=== PATIENT | female | born 1970 | race Two or more races ===

== ENCOUNTER 2025-03-15 17:09 | Emergency (ER) | payer MEDICAID, OTHER ==
[~2025-03-15] VITALS: Ht 149.9 cm; Wt 96.3 kg
[2025-03-15 17:20] VITALS: BP 153/79; PULSE 84; RESP 18; TEMP 98.7; O2SAT 95
--- NOTE | 2025-03-15 17:35 | ED.PDOC ---
Musculoskeletal HPI Comments THIS IS A 54 YEAR OLD FEMALE PRESENTS TO THE ED WITH CHIEF COMPLAINT OF KNEE PAIN S/P FALL. PATIENT REPORTS WHILE AT [facility] TODAY, SHE HAD TRIPPED AND FELL, CAUSING HER TO INJURE HER LEFT KNEE. PATIENT RELAYS THAT SHE NOW HAS LEFT KNEE PAIN AND SWELLING. PATIENT STATES SHE HAD A PREVIOUS MENISCUS TEAR TO THE LEFT KNEE WITH SURGERY TO CORRECT IT IN THE PAST. PATIENT DENIES ANY NUMBNESS, WEAKNESS, TINGLING, HEAD INJURY, OR BACK PAIN. NO FURTHER COMPLAINTS OR CONCERNS AT POINT OF CARE. Chief Complaint: Lower Extremity Time Seen by MD: 17:32 Reviewed Notes: Nurses Notes, Medications, Allergies Allergies: Coded Allergies: NO KNOWN ALLERGIES (Unverified , 03/15/25) Home Meds Active Scripts Ibuprofen (Ibuprofen) 800 Mg Tab, 1 TAB PO TID, #30 TAB Prov:TRICIA WHYTE 03/15/25 Information Source: Patient Mode of Arrival: Ambulatory Location: Left Extremity Location: Knee Timing: Hours Prehospital treatment: None Severity: Moderate Able to Move Extremity: Yes Bear Weight: Limited Pain: Moderate Mechanism: Hyperextension Circumstances: Fall Onset of Symptoms: After Trauma Symptoms: Swelling, Pain DVT Risk Factors: NONE History of: Knee Operation Associated signs and symptoms: Knee pain Past Medical History PAST MEDICAL HISTORY: DM Past Medical History (Other): LEFT KNEE MENISCUS TEAR Surgical History: Denies all surgeries Surgical History (Other): LEFT KNEE 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 Family History Family History: Reviewed,noncontributory to illness Social History Smoker: Non-Smoker Alcohol: Denies ETOH Use Drugs: Denies Drug Use Lives In: Home Constitutional: denies: chills, diaphoresis, fatigue, fever, malaise, sweats, weakness, others EENTM: denies: blurred vision, double vision, ear bleeding, ear discharge, ear drainage, ear pain, ear ringing, eye pain, eye redness, hearing loss, mouth pain, mouth swelling, nasal discharge, nose bleeding, nose congestion, nose pain, photophobia, tearing, throat pain, throat swelling, voice changes, others Respiratory: denies: cough, hemoptysis, orthopnea, SOB at rest, shortness of breath, SOB with excertion, stridor, wheezing, others Cardiovascular: denies: chest pain, dizzy spells, diaphoresis, Dyspnea on ex ertion, edema, irregular heart beat, left arm pain, lightheadedness, palpitations, PND, syncope, others Gastrointestinal: denies: abdomen distended, abdominal pain, blood streaked bowels, constipated, diarrhea, dysphagia, difficulty swallowing, hematemesis, melena, nausea, poor appetite, poor fluid intake, rectal bleeding, rectal pain, vomiting, others Genitourinary: denies: abnormal vagina bleeding, burning, dyspareunia, dysuria, flank pain, frequency, hematuria, incontinence, pain, , vagina discharge, urgency, others Neurological: denies: dizziness, fainting, headache, left sided numbness, left sided weakness, numbness, paresthesia, pre-existing deficit, right sided numbness, right sided weakness, seizure, speech problems, tingling, tremors, weakness, others Musculoskeletal: reports: joint pain, joint swelling, others (LEFT KNEE PAIN AND SWELLING); denies: back pain, gout, muscle pain, muscle stiffness, neck pain Integumetry: denies: bruises, change in color, change in hair/nails, dryness, laceration, lesions, lumps, rash, wounds, others Allergic/Immunocompromised: denies: Difficulty Healing, Frequent Infections, Hives, Itching, others Hematologic/Lymphatic: denies: anemia, blood clots, easy bleeding, easy bruising, swollen glands, others Endocrine: denies: excessive hunger, excessive sweating, excessive thirst, excessive urination, flushing, intolerance to cold, intolerance to heat, unexplained weight gain, unexplained weight loss, others Psychiatric: denies: anxiety, bipolar disorder, depression, hopeless, panic disorder, schizophrenia, sleepless, suicidal, others All Other Systems: Reviewed and Negative Physical Exam General Appearance: No Apparent Distress, Obese HEENT: Normal ENT Inspection, PERRL/EOMI, Pharynx Normal, TMs Normal Neck: Full Range of Motion, Non-Tender, Normal, Normal Inspection Respiratory: Chest Non-Tender, Lungs Clear, No Accessory Muscle Use, No Respiratory Distress, Normal Breath Sounds Cardiovascular: No Edema, No JVD, No Murmur, No Gallop, Normal Peripheral Pulses, Regular Rate/Rhythm Breast Exam: Deferred Gastrointestinal: No Organomegaly, Non Tender, No Pulsatile Mass, Normal Bowel Sounds, Soft Genitalia: Deferred Pelvic: Deferred Rectal: Deferred Extremities: Decreased range of motion, No calf tenderness, Normal capillary refill, No pedal edema, Swelling (TENDERNESS AND SWELLING ON LEFT ANTERIOR KNEE, NO DEFORMITY AND OPEN WOUND. ), Tender (AND SWELLING ON ANTERIOR KNEE, NO BONY TENDERNESS AND DEFORMITY. ) Musculoskeletal : Apperance: Normal Neurologic: Alert, event designer II-XII nml as Tested, No Motor Deficits, Normal Affect, Normal Mood, No Sensory Deficits Cerebellar Function: Normal Reflexes: Normal Skin: Dry, Normal Color, Warm Peripheral Pulses: 2+ carotid (R), 2+ carotid (L), 2+ dorsalis pedis (R), 2+ dorsalis pedis (L) Lymphatic: No Adenopathy Was a procedure done? Was a procedure done?: No Differential Diagnosis EXT Differential Diagnosis: Fracture, Sprain, Dislocation, DJD, Contusion, Strain, Arthritis, Bursitis X-Ray, Labs, Meds, VS Vital Signs Date Time Temp Pulse Resp B/P (MAP) Pulse Ox O2 Delivery O2 Flow Rate FiO2 03/15/25 17:20 98.7 84 18 153/79 (103) 95 98.7 Current Medications Medications (Trade) Dose Ordered Sig/Marissa Route Start Time Stop Time Status Last Admin Acetaminophen/ Hydrocodone Bitart ([place] 10/325MG Tab) 1 tab ONCE ONCE PO 03/15/25 17:45 03/15/25 17:46 DC 03/15/25 18:01 X-Ray, Labs, Meds, VS Comment EXTERNAL MEDICAL RECORDS REVIEWED: [NONE] INDEPENDENT HISTORIANS: [NONE] SOCIAL DETERMINANTS OF HEALTH: [NONE] LABS ORDERED: NONE REVIEWED AND INTERPRETED RESULTS: LEFT KNEE XR INTERPRETED BY ME. NO ACUTE FINDINGS. NO FRACTURES OR DISLOCATION. DEGENERATIVE CHANGES NOTED. PENDING RADI OLOGIST REPORT. IMAGING ORDERED: LEFT KNEE XR TREATMENTS ORDERED: [place] 10/325 PO PROCEDURES PERFORMED: NONE CRITICAL CARE TIME: NONE I HAVE DISCUSSED THE PATIENT WITH THE ATTENDING PHYSICIAN DR. DEE AND HE AGREES WITH THE PATIENT'S PLAN OF CARE AND DISPOSITION. BASED ON HISTORY OF PRESENT ILLNESS, AND PHYSICAL EXAM, PATIENT WILL BE DISCHARGED HOME. DISCUSSED PLAN FOR DISCHARGE HOME WITH RX [MOTRIN 800MG]. MEDICATION WARNINGS GIVEN. SHARED DECISION MAKING: DISCUSSED WITH PATIENT THAT THEIR WORKUP WAS NORMAL. PATIENT INSTRUCTED TO FOLLOW UP WITH PRIMARY CARE PROVIDER IN 1-2 DAYS FOR RE- EVALUATION OF SYMPTOMS. PATIENT VERBALIZES UNDERSTANDING TO RETURN TO ED FOR NEW OR WORSENING SYMPTOMS OR IF FOLLOW UP WITH PCP CANNOT BE OBTAINED. PATIENT FEELS COMFORTABLE GOING HOME AT THIS TIME. ALL QUESTIONS ADDRESSED AT TIME OF DISCHARGE. Time of 1ST Reevaluation: 18:20 Reevaluation 1ST: Improved Patient Education/Counseling: Diagnosis, Treatment, Need For Follow Up Family Education/Counseling: Diagnosis, Treatment, Need For Follow Up, No Family Present Medical Screening: No EMC Exist At This Time Departure 1 Departure Time of Disposition: 18:20 Impression: Primary Impression: Sprain of left knee Qualified Codes: S83.8X2A - Sprain of other specified parts of left knee, initial encounter Disposition: HOME / SELF CARE / HOMELESS Condition: Stable Additional Instructions: FOLLOW-UP WITH PCP IN 1 TO 2 DAYS. TAKE MEDICATIONS PRESCRIBED. RETURN TO ED FOR ANY NEW OR WORSENING SYMPTOMS. e-Prescriptions Ibuprofen (Ibuprofen) 800 Mg Tab 1 TAB PO TID, #30 TAB Prov: TRICIA WHYTE 03/15/25 Discharged With: Self, Spouse Critical Care Note Critical Care Time?: No Stability Stability form required: No Heart Score Heart Score: Heart Score Response (Comments) Value History N/A 0 EKG N/A 0 Age N/A 0 Risk Factors N/A 0 Troponin N/A 0 Total 0 I personally scribed for TRICIA WHYTE ([email or web address]) on 03/15/25 at 17:35. Electronically submitted by Teddy Allred ([email or web address]). I personally scribed for TRICIA WHYTE ([email or web address]) on 03/15/25 at 17:51. Electronically submitted by Teddy Allred ([email or web address]). TRICIA WHYTE Mar 15, 2025 17:35
[2025-03-15] MEDS: HYDROcodone-ACET 10/325MG TAB PO ONE (18:01)
[2025-03-15] MEDS ORDERED: IBUP-1456 PO (18:03)
--- NOTE | 2025-03-15 18:11 | DVH ---
EXAM: XY L KNEE 3V XRAY REASON FOR EXAM: FALL TECHNIQUE: AP, lateral, and oblique views of the left knee are submitted for review. COMPARISON: None FINDINGS: The bones demonstrate normal mineralization. There is no acute fracture or dislocation. Th ere is moderate narrowing of the medial compartment. There is no knee effusion. The soft tissues are unremarkable. IMPRESSION: No acute fracture or dislocation. Moderate medial compartment osteoarthritis.
== END 2025-03-15 18:10 | disposition home or self-care (01) ==
LOC: ER 17:09
DX: S83.92XA Sprain of unspecified site of left knee, initial encounter (principal); E11.9 Type 2 diabetes mellitus without complications; Z79.1 Long term (current) use of non-steroidal anti-inflammatories (NSAID); Z98.890 Other specified postprocedural states; W01.0XXA Fall on same level from slipping, tripping and stumbling without subsequent striking against object, initial encounter; Y93.89 Activity, other specified; Y92.89 Other specified places as the place of occurrence of the external cause; Y99.8 Other external cause status
CPT/HCPCS: 73562

== ENCOUNTER 2025-06-26 12:25 | Emergency (ER) | payer SELFPAY ==
[~2025-06-26] VITALS: Ht 149.9 cm; Wt 96.2 kg
[~2025-06-26 12:25] MED LIST: IBUP-1456 PO
--- NOTE | 2025-06-26 13:46 | ED.PDOC ---
History of Present Illness HPI Comments 55 year old female with PMHx DM presents to the ED with a chief complaint of flu like symptoms onset 1 week. Patient has been experiencing fever, chills, body aches, nasal congestion, cough, shortness of breath, fatigue, dizziness for the past week. She has taken Theraflu and cough syrup with no improvement of symptoms. She states her son was diagnosed with Bronchitis about 1 week ago, was experiencing similar symptoms. No other symptoms or modifying factors present at this time. Denies chills night sweats unintentional weight loss Denies persistent chest pain leg swelling Denies history of asthma nor any breathing conditions Denies history of pneumonia Denies recent international travel Chief Complaint: Flu like Time Seen by MD: 13:15 Reviewed Notes: Medications, Allergies Allergies: Coded Allergies: NO KNOWN ALLERGIES (Unverified , 03/15/25) Home Meds Active Scripts Prednisone (Prednisone) 20 Mg Tab, 40 MG PO DAILY for 5 Days, #10 TAB 0 Refills Prov:WILLIAM NASCIMENTO NP 06/26/25 Azithromycin (Azithromycin) 250 Mg Tab, 250 MG PO DAILY MDD 500 for 5 Days, #6 TAB 0 Refills 2 TABLETS ORALLY ON DAY ONE, THEN 1 TABLET ORALLY DAILY FOR 4 DAYS Prov:WILLIAM NASCIMENTO NP 06/26/25 Albuterol Sulfate (Albuterol Sulfate Hfa) 108 Mcg/Act Aer, 1 PUFF IN Q6HP PRN for 10 Days, #1 AER 0 Refills Prov:WILLIAM NASCIMENTO NP 06/26/25 Ibuprofen (Ibuprofen) 800 Mg Tab, 1 TAB PO TID, #30 TAB Prov:TRICIA WHYTE 03/15/25 Information Source: Patient Mode of Arrival: Ambulatory Severity: Moderate Timing: Weeks Duration: Since onset Prehospital treatment: Treatment Past Medical History PAST MEDICAL HISTORY: DM Surgical History: Denies all surgeries 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 History Family History Family History: Reviewed,noncontributory to illness Social History Smoker: Non-Smoker Alcohol: Denies ETOH Use Drugs: Denies Drug Use Lives In: Home All Other Systems: Reviewed and Negative (as per HPI) Physical Exam General Appearance: No Apparent Distress, Normal HEENT: Normal ENT Inspection, Pharynx Normal, TMs Normal Neck: Full Range of Motion, Non-Tender, Normal, Normal Inspection Respiratory: Chest Non-Tender, Lungs Clear, No Accessory Muscle Use, No Respiratory Distress, Normal Breath Sounds Cardiovascular: No Edema, No JVD, No Murmur, No Gallop, Normal Peripheral Pulses, Regular Rate/Rhythm Breast Exam: Deferred Gastrointestinal: No Organomegaly, Non Tender, No Pulsatile Mass, Normal Bowel Sounds, Soft Genitalia: Deferred Pelvic: Deferred Rectal: Deferred Extremities: No calf tenderness, Normal capillary refill, Normal inspection, Normal range of motion, Non-tender, No pedal edema Musculoskeletal : Apperance: Normal Neurologic: Alert, wearing apparel assembler II-XII nml as Tested, No Motor Deficits, Normal Affect, Normal Mood, No Sensory Deficits Cerebellar Function: Normal Reflexes: Normal Skin: Dry, Normal Color, Warm Lymphatic: No Adenopathy Was a procedure done? Was a procedure done?: No X-Ray, Labs, Meds, VS Vital Signs Date Time Temp Pulse Resp B/P (MAP) Pulse Ox O2 Delivery O2 Flow Rate FiO2 06/26/25 14:57 92 06/26/25 13:56 97.9 94 18 132/59 (83) 96 97.9 06/26/25 13:56 94 18 98 Room Air 06/26/25 12:27 98.9 104 20 131/73 93 98.9 Current Medications Medications (Trade) Dose Ordered Sig/Marissa Route Start Time Stop Time Status Last Admin Ceftriaxone Sodium (Rocephin) 1,000 mg ONCE ONCE IM 06/26/25 13:15 06/26/25 13:36 DC 06/26/25 13:50 Acetaminophen (Tylenol Tablet Or Capsule) 1,000 mg ONCE ONCE PO 06/26/25 13:15 06/26/25 13:36 DC 06/26/25 13:50 [place] [id number] Ph: [phone] DIAGNOSTIC IMAGING Diagnostic Imaging Report : [id number] Signed PATIENT: MELYSSA MCKINNEY ACCT: [id number] UNIT: [id number] : 1970 LOC: ER ROOM / BED: / AGE / SEX: 55 / F ADM STATUS: REG ER SERVICE [id number] ORDERING PHYSICIAN: WILLIAM NASCIMENTO NP PROCEDURE(s): CXR2 - CHEST TWO VIEWS ROUTINE REASON: R/o pna ORDER NUMBER(s): [id number], ACCESSION NUMBER(s): [id number] XY CHEST TWO VIEWS ROUTINE CLINICAL HISTORY: Pain R/o pna COMPARISON: None TECHNIQUE: Frontal and lateral view of the chest was obtained FINDINGS: Lines and Tubes: None Lungs: Diffuse interstitial opacities. Pleura: No effusion. No pneumothorax. Cardiomediastinal contours: Unremarkable Bones: No acute osseous abnormality. IMPRESSION: Diffuse interstitial opacities suggestive of atypical infection. ATED BY: MARIELA PEREZ MD DICTATED DATE/TIME: 06/26/25 135 SIGNED BY: MARIELA PEREZ MD SIGNED DATE/TIME: 06/26/25 135 CC: X-Ray, Labs, Meds, VS Comment 55 year old female with PMHx DM presents to the ED with a chief complaint of flu like symptoms onset 1 week. Patient arrives alert and oriented, ABC's intact, afebrile, vital signs stable, saturating well in room air Diagnostic imaging ordered by me and results interpreted by radiology : XY CHEST 2 VIEWS: IMPRESSION: Diffuse interstitial opacities suggestive of atypical infection. Labs in the ED showed (pertinent+ and then pertinent-) Patient was given: Tylenol 1000 mg Po, Ceftriaxone 1000 mg IM,. Tolerated medications with no adverse reaction. Additional MDM Review of External, Non-ED records: External records reviewed. Discussion with independent historian (EMS, family) history obtained from the patient/parents (if applicable) at bedside Chronic conditions affecting care: DM Social determinants of health affecting care: None Consideration of admission (observation or admission): I considered escalation of care to admission for this patient, however given the reassuring workup, the patient is safe for outpatient management. On reevaluation, patient had symptomatic improvement. Patient is stable for discharge at this time. External notes reviewed. Test results and diagnostic imaging interpreted. All diagnostic findings, discharge care, education and instructions provided Follow-up with PCP in 2 to 3 days Patient verbalized understanding and agreed to treatment plan Vital signs stable, afebrile, no acute distress noted Patient ambulatory with strong steady gait Advised to return precautions for any new or worsening symptoms, return to ER immediately for re-evaluation Patient is aware that the purpose of this visit was for an acute medical emergency requiring emergent stabilization. Chronic conditions, including malignancies have not been ruled out. Patient is instructed to follow up with PCP as directed and discharge instructions for continued care and workup. If unable to arrange follow-up, patient is to return to the emergency department for reassessment. Patient (parent or legal guardian if applicable) was given verbal and written discharge instructions and acknowledges understanding. Time of 1ST Reevaluation: 13:45 Reevaluation 1ST: Improved Patient Education/Counseling: Diagnosis, Treatment Family Education/Counseling: No Family Present SEPSIS Sepsis Screen Date sepsis recognized/suspect: Jun 26, 2025 Time Sepsis recognized/suspect: 7 Recent Procedure: No On Antibiotic Therapy: No Respiratory Rate >20: No Heart Rate >90: Yes Temp<36 C (96.8 F) or >38.3 C: No SBP <90 or MAP <65 mmHG: No New Acute Mental Status Change: No Is the patient on CPAP, BIPAP,: No Physician Orders Chest Two Views Routine (06/26/25 13:14) Ceftriaxone Sodium (Rocephin) (06/26/25 13:15) Albuterol Medneb (Ventolin Medneb) (06/26/25 15:00) Ipratropium Medneb (Atrovent Medneb) (06/26/25 15:00) Vital Signs Date Time Temp Pulse Resp B/P (MAP) Pulse Ox O2 Delivery O2 Flow Rate FiO2 06/26/25 14:57 92 06/26/25 13:56 97.9 94 18 132/59 (83) 96 97.9 06/26/25 13:56 94 18 98 Room Air 06/26/25 12:27 98.9 104 20 131/73 93 98.9 Medications Medications Dose Ordered Sig/Marissa Route Start Time Stop Time Status Last Admin Dose Admin Acetaminophen 1,000 mg ONCE ONCE PO 06/26/25 13:15 06/26/25 13:36 DC 06/26/25 13:50 Ceftriaxone Sodium 1,000 mg ONCE ONCE IM 06/26/25 13:15 06/26/25 13:36 DC 06/26/25 13:50 Departure 1 Departure Time of Disposition: 14:59 Impression: Primary Impression: Atypical pneumonia Disposition: 01 HOME / SELF CARE / HOMELESS Condition: Fair e-Prescriptions Prednisone (Prednisone) 20 Mg Tab 40 MG PO DAILY for 5 Days, #10 TAB 0 Refills Prov: WILLIAM NASCIMENTO NP 06/26/25 Azithromycin (Azithromycin) 250 Mg Tab 250 MG PO DAILY MDD 500 for 5 Days, #6 TAB 0 Refills 2 TABLETS ORALLY ON DAY ONE, THEN 1 TABLET ORALLY DAILY FOR 4 DAYS Prov: WILLIAM NASCIMENTO NP 06/26/25 Albuterol Sulfate (Albuterol Sulfate Hfa) 108 Mcg/Act Aer 1 PUFF IN Q6HP PRN for 10 Days, #1 AER 0 Refills Prov: WILLIAM NASCIMENTO NP 06/26/25 Critical Care Note Critical Care Time?: No Stability Stability form required: No Heart Score Heart Score: Heart Score Response (Comments) Value History N/A 0 EKG N/A 0 Age N/A 0 Risk Factors N/A 0 Troponin N/A 0 Total 0 I personally scribed for WILLIAM NASCIMENTO NP ([email or web address]) on 06/26/25 at 13:46. Electronically submitted by Capri Gee ([email or web address]). I personally scribed for WILLIAM NASCIMENTO NP ([email or web address]) on 06/26/25 at 15:27. Electronically submitted by Capri Gee ([email or web address]). WILLIAM NASCIMENTO NP Jun 26, 2025 13:46
[2025-06-26] MEDS: cefTRIAXone SOD 1,000 MG VL IM ONE (13:50)
[2025-06-26] MEDS: ACETAMINOPHEN 500 MG TAB or CAP PO ONE (13:50)
--- NOTE | 2025-06-26 13:52 | DVH ---
XY CHEST TWO VIEWS ROUTINE CLINICAL HISTORY: Pain R/o pna COMPARISON: None TECHNIQUE: Frontal and lateral view of the chest was obtained FINDINGS: Lines and Tubes: None Lungs: Diffuse interstitial opacities. Pleura: No effusion. No pneumothorax. Cardiomediastinal contours: Unremarkable Bones: No acute osseous abnormality. IMPRESSION: Diffuse interstitial opacities suggestive of atypical infection.
[2025-06-26] MEDS ORDERED: PRED20TA2 PO (15:01)
[2025-06-26] MEDS ORDERED: ALBU108A5 IN (15:01)
[2025-06-26] MEDS ORDERED: AZIT-43 PO (15:01)
[2025-06-26] MEDS ORDERED: ALBUTEROL SULF 2.5 MG/0.5ML(0.5%) NEB SOLN ONE (15:14)
[2025-06-26] MEDS ORDERED: IPRATROPIUM BROM 0.5 MG/2.5ML INH SOL ONE (15:14)
[2025-06-26] MEDS: ALBUTEROL SULF 2.5 MG/0.5ML(0.5%) NEB SOLN NEB ONE (16:01)
[2025-06-26] MEDS: IPRATROPIUM BROM 0.5 MG/2.5ML INH SOL NEB ONE (16:01)
[2025-06-26 16:26] VITALS: BP 142/64; PULSE 100; RESP 16; TEMP 98.4; O2SAT 94
== END 2025-06-26 16:28 | disposition home or self-care (01) ==
LOC: ER 12:25
DX: J18.9 Pneumonia, unspecified organism (principal); E11.9 Type 2 diabetes mellitus without complications; Z79.899 Other long term (current) drug therapy; Z79.52 Long term (current) use of systemic steroids; Z79.1 Long term (current) use of non-steroidal anti-inflammatories (NSAID)
CPT/HCPCS: 71046; 94640; 96372; 99285; J0696